=== PATIENT | female | born 1985 | race African-American/Black ===

== ENCOUNTER 2019-03-25 13:23 | Outpatient (CLI) | payer OTHER ==
--- NOTE | 2019-03-29 15:16 | Ultrasound Report ---
Reason: TWIN GESTATION, DICHORIONIC/DIAMNIOTIC Procedure Date: 03/25/2019 Accession Number: [id number] / [id number] Procedure: US - OB F/U or Repeat CPT Code: FULL RESULT: EXAM: FOLLOW-UP OBSTETRICAL ULTRASOUND EXAM DATE: 03/25/2019 02:54 PM. CLINICAL HISTORY: TWIN GESTATION, DICHORIONIC/DIAMNIOTIC. COMPARISON: Report from 01/11/2019. TECHNIQUE: Real-time sonographic evaluation of the fetus performed by the yard attendant. Multiple indirect sales representative static images were saved for review. DATING: Established EGA 29 weeks 5 days with VALERY 06/05/2019 based on source of assigned dating. EGA Twin A: 30 weeks 1 day with VALERY 06/02/2019 based on the current ultrasound. EGA TWin B: 29 weeks 4 days with VALERY 06/06/2019 based on the current ultrasound. GENERAL EVALUATION Twin . Reported dichorionic diamniotic. Twin A: Cardiac activity: 160 bpm. movement: Visualized. Presentation: Cephalic. Placenta: Posterior position. Amniotic fluid: Normal. EDY 13.2 cm. MVP 5.1 cm. BIOMETRY Bi-Parietal Diameter (BPD): 7.2 cm, 29/0 Head Circumference (HC): 27.7 cm, 30/2 Abdominal Circumference (AC): 27.0 cm, 31/1 Femur Length (FL): 5.8 cm, 30/0 Estimated Weight: 1603 g, 69th Percentile for 29 weeks 5 days. Twin B: Cardiac activity: 164 bpm. movement: Visualized. Presentation: Breech Placenta: Posterior position. Amniotic fluid: Normal. EDY 17.4 cm. MVP 6.1 cm. BIOMETRY Bi-Parietal Diameter (BPD): 6.8 cm, 27/3 Head Circumference (HC): 27.5 cm, 30/1 Abdominal Circumference (AC): 27.4 cm, 31/3 Femur Length (FL): 5.6 cm, 29/2 Estimated Weight: 1551 g, 59th Percentile for 29 weeks 5 days. Maternal anatomy: The cervix measures 3.5 cm transabdominally. There appears to be mild finding lean of the internal cervical os. IMPRESSION: 1. Twin living intrauterine with gestational age 29 weeks 5 days based on source of assigned dating. 2. Estimated weight for both twins is within expected limits for assigned dating. 3. The cervix measures 3.5 cm transabdominally. There appears to be mild funneling of the internal cervical os. Transvaginal imaging could further assess the cervix at follow-up. RADIA
== END 2019-03-25 13:24 | disposition home or self-care (01) ==
LOC: DI 13:23
PROVIDERS: ATTEND Obstetrics & Gynecology
DX: O30.043 Twin pregnancy, dichorionic/diamniotic, third trimester (principal); Z3A.29 29 weeks gestation of pregnancy
CPT/HCPCS: 76816

== ENCOUNTER 2019-04-02 14:38 | Outpatient (CLI) | payer OTHER ==
[2019-04-02 17:28] VITALS: BP 108/66
--- NOTE | 2019-04-02 18:48 | Ultrasound Report ---
Reason: decreased movement Procedure Date: 04/02/2019 Accession Number: [id number] / [id number] Procedure: US - OB Biophysical Profile CPT Code: FULL RESULT: EXAM: BIOPHYSICAL PROFILE EXAM DATE: 04/02/2019 05:17 PM. CLINICAL HISTORY: Decreased movement. Dichorionic diamniotic twins. COMPARISON: None. TECHNIQUE: Real-time sonographic evaluation of the fetus performed by the thickener operator. Multiple contact center representative static images were saved for review. DATING: Established EGA 30 weeks 6 days with VALERY 06/05/2019. GENERAL EVALUATION Fetus A: Velasquez . Cardiac activity: 154 bpm. movement: Visualized. Presentation: Maternal right cephalic. Placenta: Posterior position. Amniotic fluid: Normal. EDY 19.3 cm. MVP 7.3 cm. BIOPHYSICAL PROFILE Breathing = 2 Movement = 2 Tone = 2 Amniotic Fluid = 2 Total 8/8, normal. Fetus B: Velasquez . Cardiac activity: 153 bpm. movement: Visualized. Presentation: Maternal left cephalic. Placenta: Posterior position. Amniotic fluid: Normal. EDY 13.4 cm. MVP 4 cm. BIOPHYSICAL PROFILE Breathing = 2 Movement = 2 Tone = 2 Amniotic Fluid = 2 Total 8/8, normal. Cervix appears long and closed, measures 3.6 cm. IMPRESSION: 1. Live twin intrauterine . 2. Biophysical profile score is normal for each twin, 8 of 8. See above. RADIA
--- NOTE | 2019-04-19 20:42 | PROVIDER PROGRESS NOTE ---
- HPI Chief Complaint: Other (Patient is a 34 yo GP1 at 30w6d ega with complicated by di/di twin gestation. Presents with complaint of decreased movement.) Current : Current EDU 06/05/19 Gestation 30 Weeks and 6 Days 2 Para 1 Vital Signs Temperature 98.4 F 04/02/19 15:10 Heart Rate 100 04/02/19 15:10 Respiratory Rate 18 04/02/19 15:10 Blood Pressure 108/66 04/02/19 15:10 O2 Saturation 100 04/02/19 15:10 Temperature 98.4 F 04/02/19 15:10 Heart Rate 100 04/02/19 15:10 Respiratory Rate 18 04/02/19 15:10 Blood Pressure 108/66 04/02/19 15:10 O2 Saturation 100 04/02/19 15:10 - Procedures OB Procedure Performed: Other (BPP 8/8 x2) NST Procedure: NST Procedure Start Date 04/02/19 Start Time 14:50 Stop Time 15:50 Vibroacoustic Stimulation Used No Patient States Movement Yes: decreased since 10am today Service Date of procedure: 04/02/19 Procedure Details: NST showed fragments of reactive tracing with baseline in the 150sx2. However, not able to identify clearly distinct tracing for each infant Formal BPP ordered to confirm viability and appropriate reactivity for gestational age BPP 8/8 for each . See formal DI report. Findings: 34 yo at 30+6 wga with did/di twin gestation and report of decreased movement. NST unreadable due to inability to differentiate between two tracings. BPP ordered and was 8/8 for each fetus. Discharged to home with warning sings reviewed. Proceed with routine OB care, including start of testing at 32 wga DOS: 04/02/19 Decreased movement in di/di twin gestation
== END 2019-04-02 18:55 | disposition home or self-care (01) ==
LOC: WFO 14:38 → FBP 14:45 → WFO 18:55
PROVIDERS: ATTEND Obstetrics & Gynecology
DX: O36.8130 Decreased fetal movements, third trimester, not applicable or unspecified (principal); O30.043 Twin pregnancy, dichorionic/diamniotic, third trimester; Z3A.30 30 weeks gestation of pregnancy
CPT/HCPCS: 59025; 76819

== ENCOUNTER 2019-04-09 09:28 | Outpatient (CLI) | payer OTHER ==
[2019-04-09 09:56] VITALS: BP 108/68
--- NOTE | 2019-04-09 11:30 | PROCEDURE REPORT ---
- HPI Current EDU 06/05/19 Gestation 31 Weeks and 6 Days 2 Para 1 Vital Signs Heart Rate 102 H 04/09/19 09:54 Respiratory Rate 18 04/09/19 09:54 Blood Pressure 108/68 04/09/19 09:54 O2 Saturation 99 04/09/19 09:54 Temperature Heart Rate 102 H 04/09/19 09:54 Respiratory Rate 18 04/09/19 09:54 Blood Pressure 108/68 04/09/19 09:54 O2 Saturation 99 04/09/19 09:54 - NST Procedure NST Procedure Start Date 04/09/19 Start Time 09:40 Stop Time 11:00 Vibroacoustic Stimulation Used No Patient States Movement Yes Base line 150 from both twins acceleration on both infants - Results and Plan Findings/Impression: Twin gestation 31.6 weeks reactive strips
== END 2019-04-09 11:10 | disposition home or self-care (01) ==
LOC: WFO 09:28 → FBP 09:32 → WFO 11:10
PROVIDERS: ATTEND Obstetrics & Gynecology
DX: O30.003 Twin pregnancy, unspecified number of placenta and unspecified number of amniotic sacs, third trimester (principal); Z3A.31 31 weeks gestation of pregnancy
CPT/HCPCS: 59025

== ENCOUNTER 2019-04-16 09:37 | Outpatient (CLI) | payer OTHER ==
[2019-04-16 10:00] VITALS: BP 119/68
--- NOTE | 2019-04-16 12:13 | PROCEDURE REPORT ---
- HPI Diagnosis/Indication for NST: Multiple gestation Current EDU 06/06/19 Gestation 32 Weeks and 5 Days 2 Para 1 Vital Signs Temperature 36.9 C 04/16/19 09:59 Heart Rate 109 H 04/16/19 09:59 Respiratory Rate 18 04/16/19 09:59 Blood Pressure 119/68 04/16/19 09:59 O2 Saturation 98 04/16/19 09:59 Temperature 36.9 C 04/16/19 09:59 Heart Rate 109 H 04/16/19 09:59 Respiratory Rate 18 04/16/19 09:59 Blood Pressure 119/68 04/16/19 09:59 O2 Saturation 98 04/16/19 09:59 - NST Procedure NST Procedure Start Date 04/16/19 Start Time 09:50 Stop Time 10:41 Vibroacoustic Stimulation Used Yes Patient States Movement Yes - Results and Plan Findings/Impression: NST results reveal both twin B and twin A to be reactive today. The test was read on 04/16/2019. Impression: Dichorionic/diamniotic twin gestation at 32 weeks 5 day gestation. Plan: The patient was discharged home. She will return in 1 week for her next nonstress test.
== END 2019-04-16 10:50 | disposition home or self-care (01) ==
LOC: WFO 09:37 → FBP 09:39 → WFO 10:50
PROVIDERS: ATTEND Obstetrics & Gynecology
DX: O30.043 Twin pregnancy, dichorionic/diamniotic, third trimester (principal); Z3A.32 32 weeks gestation of pregnancy
CPT/HCPCS: 59025

== ENCOUNTER 2019-04-23 09:31 | Outpatient (CLI) | payer OTHER ==
[2019-04-23 09:52] VITALS: BP 111/63
--- NOTE | 2019-04-28 11:57 | PROCEDURE REPORT ---
- HPI Current EDU 06/05/19 Gestation 33 Weeks and 6 Days 2 Para 1 Vital Signs Temperature 36.5 C 04/23/19 09:50 Heart Rate 108 H 04/23/19 09:50 Respiratory Rate 18 04/23/19 09:50 Blood Pressure 111/63 04/23/19 09:50 O2 Saturation 99 04/23/19 09:50 Temperature 36.5 C 04/23/19 09:50 Heart Rate 108 H 04/23/19 09:50 Respiratory Rate 18 04/23/19 09:50 Blood Pressure 111/63 04/23/19 09:50 O2 Saturation 99 04/23/19 09:50 - NST Procedure NST Procedure Start Date 04/23/19 Start Time 09:43 Stop Time 10:33 Vibroacoustic Stimulation Used No Patient States Movement Yes - Results and Plan Findings/Impression: base line 145 33.6 weeks good varriability few accelerations. Acceptable for 33.6 weeks Twins Plan: continue antinatal testing.
== END 2019-04-23 10:40 | disposition home or self-care (01) ==
LOC: WFO 09:31 → FBP 09:34 → WFO 10:40
PROVIDERS: ATTEND Obstetrics & Gynecology
DX: O30.003 Twin pregnancy, unspecified number of placenta and unspecified number of amniotic sacs, third trimester (principal); Z3A.33 33 weeks gestation of pregnancy
CPT/HCPCS: 59025

== ENCOUNTER 2019-04-28 09:36 | Outpatient (CLI) | payer OTHER ==
--- NOTE | 2019-04-29 07:34 | Ultrasound Report ---
Reason: DICHORIONIC/DIAMNIOTIC TWINS Procedure Date: 04/28/2019 Accession Number: [id number] / [id number] Procedure: US - OB F/U or Repeat CPT Code: FULL RESULT: EXAM: FOLLOW-UP OBSTETRICAL ULTRASOUND - TWINS EXAM DATE: 04/28/2019 10:56 AM. CLINICAL HISTORY: DICHORIONIC/DIAMNIOTIC TWINS. COMPARISON: OB F/U OR REPEAT 03/25/2019 2:54 PM. TECHNIQUE: Real-time sonographic evaluation of the fetus performed by the curriculum coordinator. Multiple retail customer service representative static images were saved for review. DATING: Established EGA 34 weeks 4 days with VALERY 06/05/2019 based on assigned dating. Twin A EGA 35 weeks with VALERY 06/02/2019 based on current ultrasound. Twin B EGA 33 weeks 3 days with VALERY 06/11/2019 based on current ultrasound GENERAL EVALUATION Dichorionic/diamniotic twin . TWIN A: Cardiac activity: 143 bpm. movement: Visualized. Presentation: Cephalic Placenta: Fundal posterior position. Amniotic fluid: 18.6 MVP 7.7 cm. BIOMETRY Bi-Parietal Diameter (BPD): 8.5 cm, 34 weeks 1 day Head Circumference (HC): 31.5 cm, 35 weeks 3 days Abdominal Circumference (AC): 31.7 cm, 35 weeks 4 days Femur Length (FL): 6.8 cm, 34 weeks 6 days Composite gestational age 35 weeks 0 days with VALERY 06/02/2019. Estimated Weight: 2628 g, 65.4 percentile for 34 weeks 4 days. TWIN B: Cardiac activity: 141 bpm. movement: Visualized. Presentation: Breech Placenta: Fundal posterior position. Amniotic fluid: 14.4 MVP 4.4 cm. BIOMETRY Bi-Parietal Diameter (BPD): 7.6 cm, 30 weeks 4 days Head Circumference (HC): 30.5 cm, 34 weeks 0 days Abdominal Circumference (AC): 31.7 cm, 35 weeks 5 days Femur Length (FL): 6.5 cm, 33 weeks 3 days CI 70.27 (74-83) Composite gestational age 33 weeks 3 days with VALERY 06/13/2019. Estimated Weight: 2413 g, 38.9 percentile for 34 weeks 4 days. IMPRESSION: 1. Dichorionic/diamniotic twin intrauterine with gestational age 34 weeks 4 days based on assigned dating. 2. Twin A: - Estimated weight is within expected limits for assigned dating. - Normal interval growth 3. Twin B: - Estimated weight is within expected limits for assigned dating. - Normal interval growth . Twin B cranial index is 70.27 (range 74-83) RADIA
== END 2019-04-28 09:37 | disposition home or self-care (01) ==
LOC: DI 09:36
PROVIDERS: ATTEND Obstetrics & Gynecology
DX: O30.049 Twin pregnancy, dichorionic/diamniotic, unspecified trimester (principal); Z3A.34 34 weeks gestation of pregnancy
CPT/HCPCS: 76816

== ENCOUNTER 2019-04-30 09:33 | Outpatient (CLI) | payer OTHER ==
[2019-04-30 10:26] VITALS: BP 113/78
--- NOTE | 2019-05-03 03:55 | Ultrasound Report ---
Reason: assessment of status Procedure Date: 04/30/2019 Accession Number: [id number] / [id number] Procedure: US - OB Biophysical Profile CPT Code: Final Report FULL RESULT: EXAM: BIOPHYSICAL PROFILE TWIN GESTATION EXAM DATE: 04/30/2019 12:42 PM. CLINICAL HISTORY: Nonreactive nonstress test. COMPARISON: OB BIOPHYSICAL PROFILE 04/02/2019 4:35 PM OB F/U OR REPEAT 04/28/2019 9:39 AM. TECHNIQUE: Real-time sonographic evaluation of the fetus performed by the shirring machine operator automatic. Multiple escrow representative static images were saved for review. DATING: Established EGA 34 weeks 6 days with VALERY 06/05/2019. GENERAL EVALUATION Diamnionic dichorionic twin gestation. Twin A: Cardiac activity: 155 bpm. movement: Visualized. Presentation: Cephalic, maternal right. Placenta: Right position. No evidence for previa or abruption. Amniotic fluid: Normal. EDY 15.3 cm. MVP 7.1 cm. Twin B: Cardiac activity: 139 bpm. movement: Visualized. Presentation: Breech, maternal left. Placenta: Left position. No evidence for previa or abruption. Amniotic fluid: Normal. EDY 12.6 cm. MVP 4.9 cm. BIOPHYSICAL PROFILE Twin A: Breathing = 2 Movement = 2 Tone = 2 Amniotic Fluid = 2 Total 8/8 Twin B: Breathing = 2 Movement = 2 Tone = 2 Amniotic Fluid = 2 Total 8/8 IMPRESSION: 1. Twin live intrauterine with gestational age 34 weeks 6 days based on established VALERY. 2. Biophysical profile score 8 of 8 for both fetuses. RADIA
--- NOTE | 2019-05-03 14:17 | PROCEDURE REPORT ---
- HPI Diagnosis/Indication for NST: Multiple gestation Current EDU 06/05/19 Gestation 34 Weeks and 6 Days 2 Para 1 Vital Signs Temperature 97.9 F 04/30/19 10:00 Heart Rate 108 H 04/30/19 10:00 Respiratory Rate 17 04/30/19 10:00 Blood Pressure 113/78 04/30/19 10:00 O2 Saturation 99 04/30/19 10:00 Temperature 97.9 F 04/30/19 10:00 Heart Rate 108 H 04/30/19 10:00 Respiratory Rate 17 04/30/19 10:00 Blood Pressure 113/78 04/30/19 10:00 O2 Saturation 99 04/30/19 10:00 - NST Procedure NST Procedure Start Date 04/30/19 Start Time 09:45 Stop Time 11:08 Vibroacoustic Stimulation Used No Patient States Movement Yes Twin A: EFM 145 mod patsy 15x15 accels x2 on extended monitoring no decels Twin B: EFM 145 mod patsy 1 accel on extended monitoring Non-reactive NST with difficulty monitoring due to twin gestation Sent for BPP. BPP 8/8 for both twins - Results and Plan Findings/Impression: 34 yo at 34w6d ega with di/di twin gestation Non-reactive NST vs difficult to interpret NST given multifetal gestation BPP 8/8 x2 Cont with twice weekly NST and weekly EDY with Q4 week growth us Delivery at 38 wga (vertex/breech presentation) Consider weekly BPP given difficulty monitoring twins Plan: DOS: 04/30/19 DX: Multifetal gestation
== END 2019-04-30 14:00 | disposition home or self-care (01) ==
LOC: WFO 09:33 → FBP 09:36 → WFO 14:00
PROVIDERS: ATTEND Obstetrics & Gynecology
DX: O30.043 Twin pregnancy, dichorionic/diamniotic, third trimester (principal); O32.1XX2 Maternal care for breech presentation, fetus 2; Z3A.34 34 weeks gestation of pregnancy
CPT/HCPCS: 59025; 76819

== ENCOUNTER 2019-05-06 09:00 | Outpatient (CLI) | payer OTHER ==
[2019-05-07 20:51] LABS: TRICHOMONAS VAGINALIS DNA NEGATIVE (NEGATIVE)
== END 2019-05-06 23:59 | disposition home or self-care (01) ==
LOC: LAB.R 09:00
PROVIDERS: ATTEND Obstetrics & Gynecology
DX: O30.049 Twin pregnancy, dichorionic/diamniotic, unspecified trimester (principal); Z3A.00 Weeks of gestation of pregnancy not specified
CPT/HCPCS: 87491; 87591; 87661; 87797

== ENCOUNTER 2019-05-07 09:28 | Outpatient (CLI) | payer OTHER ==
[2019-05-07 09:45] VITALS: BP 116/64
--- NOTE | 2019-05-07 12:26 | Ultrasound Report ---
Reason: HX of nonreactive NST Procedure Date: 05/07/2019 Accession Number: [id number] / [id number] Procedure: US - OB Biophysical Profile CPT Code: Final Report FULL RESULT: EXAM: OBSTETRICAL ULTRASOUND - TWINS BIOPHYSICAL PROFILE EXAM DATE: 05/07/2019 11:04 AM. CLINICAL HISTORY: HX of nonreactive NST. COMPARISON: OB BIOPHYSICAL PROFILE 04/30/2019 12:42 PM. TECHNIQUE: Real-time sonographic evaluation of the fetus performed by the layup worker. Multiple career services representative static images were saved for review. DATING: Established EGA 35 weeks 6 days with VALERY 06/05/2019 based on assigned dating. GENERAL EVALUATION Dichorionic/diamniotic twin . TWIN A: Position: Maternal right Cardiac activity: 151 bpm. movement: Visualized. Presentation: Cephalic. Placenta: Anterior right position. Amniotic fluid: 13.8 MVP 5.4 cm. BIOPHYSICAL PROFILE Breathing = 2 Movement = 2 Tone = 2 Amniotic Fluid = 2 Total 02/04 TWIN B: Position: Maternal left. Cardiac activity: 154 bpm. movement: Visualized. Presentation: Breech Placenta: Anterior left position. Amniotic fluid: 12.9 MVP 4.3 cm. BIOPHYSICAL PROFILE Breathing = 2 Movement = 2 Tone = 2 Amniotic Fluid = 2 Total 02/04 IMPRESSION: 1. Dichorionic/diamniotic twin intrauterine with gestational age 35 weeks 6 days based on assigned dating EDC 06/05/2019. 2. Twin A: Biophysical profile 8 out of 8 3. Twin B: Biophysical profile 8 out of 8 RADIA
--- NOTE | 2019-05-07 15:09 | PROCEDURE REPORT ---
- HPI Diagnosis/Indication for NST: Multiple gestation Current EDU 06/05/19 Gestation 35 Weeks and 6 Days 2 Para 1 Vital Signs Heart Rate 100 05/07/19 09:44 Respiratory Rate 18 05/07/19 09:44 Blood Pressure 116/64 05/07/19 09:44 O2 Saturation 100 05/07/19 09:44 Temperature Heart Rate 100 05/07/19 09:44 Respiratory Rate 18 05/07/19 09:44 Blood Pressure 116/64 05/07/19 09:44 O2 Saturation 100 05/07/19 09:44 - NST Procedure NST Procedure Start Date 05/07/19 Start Time 11:08 Stop Time 12:36 Vibroacoustic Stimulation Used Yes Patient States Movement Yes - Results and Plan Findings/Impression: both twins reactive. BPP 02/04 twin A 02/04 twin B Plan: continue with antinatal NST.
== END 2019-05-07 12:45 | disposition home or self-care (01) ==
LOC: WFO 09:28 → FBP 09:33 → WFO 12:45
PROVIDERS: ATTEND Obstetrics & Gynecology
DX: O30.043 Twin pregnancy, dichorionic/diamniotic, third trimester (principal); Z3A.35 35 weeks gestation of pregnancy
CPT/HCPCS: 59025; 76819

== ENCOUNTER 2019-05-14 09:25 | Outpatient (CLI) | payer OTHER ==
[2019-05-14 10:07] VITALS: BP 122/72
--- NOTE | 2019-05-14 11:25 | PROCEDURE REPORT ---
- HPI Diagnosis/Indication for NST: Multiple gestation Current EDU 06/05/19 Gestation 36 Weeks and 6 Days 2 Para 1 Vital Signs Temperature 36.9 C 05/14/19 10:06 Heart Rate 102 H 05/14/19 10:06 Respiratory Rate 18 05/14/19 10:06 Blood Pressure 122/72 05/14/19 10:06 O2 Saturation 100 05/14/19 10:06 Temperature 36.9 C 05/14/19 10:06 Heart Rate 102 H 05/14/19 10:06 Respiratory Rate 18 05/14/19 10:06 Blood Pressure 122/72 05/14/19 10:06 O2 Saturation 100 05/14/19 10:06 - NST Procedure NST Procedure Start Date 05/14/19 Start Time 09:50 Stop Time 10:43 Vibroacoustic Stimulation Used No Patient States Movement Yes - Results and Plan Findings/Impression: There was a reactive strip with respect to both twin A and twin B. This strip was read on 05/14/2019 Plan: The patient will be discharged home.She knows to come in if she has any signs of labor. As long she does well she will continue with her serial testing. Her Repeat has been tentatively scheduled for 05/24/2019.
== END 2019-05-14 10:50 | disposition home or self-care (01) ==
LOC: WFO 09:25 → FBP 09:29 → WFO 10:50
PROVIDERS: ATTEND Obstetrics & Gynecology
DX: O30.003 Twin pregnancy, unspecified number of placenta and unspecified number of amniotic sacs, third trimester (principal); O34.219 Maternal care for unspecified type scar from previous cesarean delivery; Z3A.36 36 weeks gestation of pregnancy
CPT/HCPCS: 59025

== ENCOUNTER 2019-05-21 10:20 | Outpatient (CLI) | payer OTHER ==
[2019-05-21 10:45] VITALS: BP 112/59
--- NOTE | 2019-05-21 11:58 | PROCEDURE REPORT ---
- HPI Diagnosis/Indication for NST: Multiple gestation Current EDU 06/05/19 Gestation 37 Weeks and 6 Days 2 Para 1 Vital Signs Temperature 36.9 C 05/21/19 10:44 Heart Rate 102 H 05/21/19 10:44 Respiratory Rate 18 05/21/19 10:44 Blood Pressure 112/59 L 05/21/19 10:44 Temperature 36.9 C 05/21/19 10:44 Heart Rate 102 H 05/21/19 10:44 Respiratory Rate 18 05/21/19 10:44 Blood Pressure 112/59 L 05/21/19 10:44 O2 Saturation - NST Procedure NST Procedure Start Date 05/21/19 Start Time 10:45 Stop Time 11:16 Vibroacoustic Stimulation Used Yes Patient States Movement Yes - Results and Plan Findings/Impression: Reactive NST. Read on 05/21/2019 Plan: The pt is scheduled for her repeat with kevin salpingectomy on 05/24/2019. She will come in sooner if signs of labor ensue.
== END 2019-05-21 11:20 | disposition home or self-care (01) ==
LOC: WFO 10:20
PROVIDERS: ATTEND Obstetrics & Gynecology
DX: O30.003 Twin pregnancy, unspecified number of placenta and unspecified number of amniotic sacs, third trimester (principal); O34.219 Maternal care for unspecified type scar from previous cesarean delivery; Z3A.37 37 weeks gestation of pregnancy
CPT/HCPCS: 59025

== ENCOUNTER 2019-05-24 04:33 | Inpatient (IN) | payer OTHER ==
[~2019-05-24 04:33] MED LIST: LACTATED RINGERS 1,000 ML IV ONE; SODIUM CHLORIDE FLUSH 0.9% 10 ML SYRINGE ONE
[2019-05-24] MEDS: SODIUM CHLORIDE FLUSH 0.9% 10 ML SYRINGE IVP PRN ×2 (05:05→17:01)
[2019-05-24] MEDS: LACTATED RINGERS 1,000 ML IV SCH ×2 (05:05→11:00)
[2019-05-24 05:37] LABS: BASOPHILS # (AUTO) 0.1 10^3/uL (0.0-0.1); BASOPHILS % (AUTO) 0.5 %; EOSINOPHILS # (AUTO) 0.1 10^3/uL (0.0-0.7); EOSINOPHILS % (AUTO) 1.2 %; HGB - HEMOGLOBIN 10.7 g/dL (12.0-16.0); LYMPHOCYTES # (AUTO) 1.8 10^3/uL (1.5-3.5); MEAN CORPUSCULAR HGB CONC 32.6 g/dL (32.0-36.0); MEAN CORPUSCULAR VOLUME 85.9 fL (81.0-99.0); MEAN PLATELET VOLUME 11.9 fL (7.9-10.8); MONOCYTES # (AUTO) 1.3 10^3/uL (0.0-1.0); NEUTROPHILS # (AUTO) 6.5 10^3/uL (1.5-6.6); NEUTROPHILS % (AUTO) 65.3 %; PLT - PLATELET COUNT 186 10^3/uL (130-450); RED BLOOD COUNT 3.82 10^6/uL (4.20-5.40); RED CELL DISTRIBUTION WIDTH 15.4 % (12.0-15.0)
[2019-05-24 06:02] LABS: BILIRUBIN,URINE NEGATIVE (NEGATIVE); GLUCOSE, URINE (UA) NEGATIVE (NEGATIVE); KETONES,URINE (UA) NEGATIVE (NEGATIVE); LEUKOCYTE ESTERASE, URINE NEGATIVE (NEGATIVE); NITRITE,URINE NEGATIVE (NEGATIVE); OCCULT BLOOD,URINE NEGATIVE (NEGATIVE); PH,URINE 7.5 PH (5.0-7.5); PROTEIN,URINE NEGATIVE (NEGATIVE); UROBILINOGEN,URINE 0.2 (NORMAL) E.U./dL (NORMAL)
[2019-05-24 06:03] LABS: CLARITY,URINE CLEAR (CLEAR)
[2019-05-24 06:08] LABS: BACTERIA,URINE None Seen /HPF (None Seen); RBC,URINE None Seen /HPF (0-5); SQUAMOUS EPITHELIAL CELL,UR MANY Squamous (<= Few)
[2019-05-24] MEDS ORDERED: CITRIC ACID/SODIUM CITRATE 15 ML UDC PO ONE (06:48)
[2019-05-24] MEDS ORDERED: ROPIVACAINE 0.5% PF 20 ML AMPULE ONE (07:05)
[2019-05-24] MEDS ORDERED: CARBOPROST TROMETHAMINE 250 MCG/ML AMP IM ONE ×3 (07:06→14:26)
--- NOTE | 2019-05-24 07:22 | ANESTHESIA ---
Pre-Anesthesia VS, & Labs - Diagnosis Gestational twins, desires sterility - Procedure Repeat C section, bilateral tubal ligation Vital Signs: Temp Pulse Resp BP Pulse Ox 36.6 C 96 18 98/58 L 99 05/24/19 05:51 05/24/19 05:51 05/24/19 05:51 05/24/19 05:51 05/24/19 05:51 Height 5 ft 4 in Weight (kg) 98.43 kg - NPO >8 hours - Is Patient ?: Yes - Lab Results Current Lab Results: Laboratory Tests 05/24/19 05:00: Blood Type A POSITIVE, Antibody Screen NEGATIVE 05/24/19 05:00: WBC 10.0, RBC 3.82 L, Hgb 10.7 L, Hct 32.8 L, MCV 85.9, MCH 28.0, MCHC 32.6, RDW 15.4 H, Plt Count 186, MPV 11.9 H, Neut # (Auto) 6.5, Lymph # (Auto) 1.8, Howell # (Auto) 1.3 H, Eos # (Auto) 0.1, Baso # (Auto) 0.1, Absolute Nucleated RBC 0.00, Nucleated RBC % 0.0 Fish Bones: 05/24/19 05:00 Home Medications and Allergies Active Medications Cefazolin Sodium 2 gm/ Sodium (Chloride) 100 mls @ 200 mls/hr IV ONCE HONEY Stop: 05/24/19 07:31 Lactated Ringer's (Lr) 1,000 mls @ 125 mls/hr IV .Q8H HONEY Last Admin: 05/24/19 05:05 Dose: 125 mls/hr Sodium Chloride (Normal Saline Flush 0.9%) 10 ml IVP PRN PRN PRN Reason: NEEDED PER PROVIDER ORDERS Last Admin: 05/24/19 05:05 Dose: 10 ml Allergies/Adverse Reactions: Allergies Allergy/AdvReac Type Severity Reaction Status Date / Time kiwi Allergy Severe Unknown Verified 05/24/19 02:11 latex Allergy Severe Unknown Verified 05/24/19 02:10 Anes History & Medical History - Anesthetic History Anesthesia Complications: reports: No previous complications Family history of Anesthesia Complications: Denies Family history of Malignant Hyperthermia: Denies - Medical History Cardiovascular: reports: None Pulmonary: reports: None Gastrointestinal: reports: None Urinary: reports: None Neuro: reports: None Musculoskeletal: reports: None Endocrine/Autoimmune: reports: None Blood Disorders: reports: None Skin: reports: None Smoking Status: Never smoker Psychosocial: reports: No issues indicated - Surgical History Gynecologic: Other (C section) Exam General: Alert, Oriented x3 Dental: WNL Mouth Opening: Greater than 4 Fingerbreadths Neck Mobility: Normal Mallampati classification: II Mental/Cognitive Status: Alert/Oriented X3, Normal for patient Cognitive Status: Within normal limits Plan Anesthesia Type: Spinal Consent for Procedure(s) Verified and Reviewed: Yes Code Status: Attempt Resuscitation ASA classification: 2-Mild systemic disease Is this case an emergency?: No
[2019-05-24] MEDS ORDERED: CITRIC ACID/SODIUM CITRATE 15 ML UDC PO SCH (07:26)
[2019-05-24] MEDS ORDERED: ceFAZolin 2 GM in SODIUM CHLORIDE 0.9% 100ML 100 ML IV SCH (07:30)
[2019-05-24] MEDS ORDERED: LACTATED RINGERS 1,000 ML IV ONE ×2 (08:00→10:16)
[2019-05-24] MEDS ORDERED: ONDANSETRON 4 MG/2 ML VIAL IVP PRN (09:42)
[2019-05-24] MEDS ORDERED: SODIUM CHLORIDE FLUSH 0.9% 10 ML SYRINGE IVP PRN (09:42)
[2019-05-24] MEDS ORDERED: POLYETHYLENE GLYCOL 3350 17 GM PACKET PO PRN (09:50)
[2019-05-24] MEDS ORDERED: HYDROmorphone 0.5 MG/0.5 ML SYRINGE IVP PRN (09:51)
[2019-05-24] MEDS ORDERED: OXYTOCIN/DEXTROSE 5 % 30 UNIT/500 ML BAG IV ONE (10:15)
[2019-05-24] MEDS ORDERED: LACTATED RINGERS 500 ML IV ONE ×2 (10:20→12:01)
[2019-05-24] MEDS ORDERED: METHYLERGONOVINE 0.2 MG/ML AMP ONE (10:35)
[2019-05-24] MEDS ORDERED: METHYLERGONOVINE 0.2 MG/ML AMP IM ONE (10:47)
[2019-05-24] MEDS ORDERED: METHYLERGONOVINE 0.2 MG/ML AMP PO ONE (10:48)
[2019-05-24] MEDS ORDERED: CHERRY SYRUP 10 ML UDC PO ONE (10:48)
[2019-05-24] MEDS: ACETAMINOPHEN 500 MG TABLET PO SCH ×2 (10:50→18:48)
[2019-05-24] MEDS: IBUPROFEN 600 MG TABLET PO SCH ×2 (10:51→16:58)
--- NOTE | 2019-05-24 11:57 | PROVIDER PROGRESS NOTE ---
Subjective - General Admit Date: 05/24/19 Procedure Date: 05/24/19 Post Op Days: 0 - Other Other Information/Narrative: We are called per nursing due to patient having large gushes of bleeding. She will firm up with her day. She was given 0.2 mg of Methergine IM. This helped for a while but then she had yet another gush of fluid. Her uterus now is firm. She is breast-feeding now and that is when actually the end up. She is not having any untoward bleeding now.Her Pitocin was only at 50 mL's per minute. This was then opened up to assure adequate amounts for uterine tone. Objective - Patient Data Vital Signs: Vital Signs x48h Temp Pulse Pulse Resp BP BP Pulse Ox 05/24/19 11:45 104 H 106/59 L 99 05/24/19 11:30 101 H 83/43 L 100 05/24/19 11:15 106 H 16 103/58 L 100 05/24/19 10:57 103 H 100/57 L 100 05/24/19 10:45 36.4 C L 105 H 20 99/75 99 05/24/19 10:25 36.7 C 104 H 16 99/67 100 05/24/19 10:20 36 C L 107 H 18 107/56 L 100 05/24/19 10:15 36.7 C 116 H 16 107/56 L 100 05/24/19 10:10 36.7 C 112 H 16 99/74 100 05/24/19 10:05 36.7 C 110 H 14 106/68 100 05/24/19 10:01 36.5 C 106 H 18 104/63 99 05/24/19 05:51 36.6 C 96 18 98/58 L 99 Weight: Weight 05/22/19 05/23/19 05/24/19 23:59 23:59 23:59 Weight (kg) 98.43 kg Intake & Output: Intake and Output Totals x24h 05/22/19 05/23/19 05/24/19 23:59 23:59 23:59 Intake Total 1939.583 Output Total 1560 Balance 379.583 - Lab Results Lab Results: 05/24/19 05:00 Other Lab Results: Lab Results x24hrs 05/24/19 05/24/19 05/24/19 Range/Units 07:00 05:55 05:00 WBC (4.8-10.8) x10^3/uL RBC (4.20-5.40) 10^6/uL Hgb (12.0-16.0) g/dL Hct (37.0-47.0) % MCV (81.0-99.0) fL MCH (27.0-31.0) pg MCHC (32.0-36.0) g/dL RDW (12.0-15.0) % Plt Count (130-450) 10^3/uL MPV (7.9-10.8) fL Neut # (Auto) (1.5-6.6) 10^3/uL Lymph # (Auto) (1.5-3.5) 10^3/uL Cobb # (Auto) (0.0-1.0) 10^3/uL Eos # (Auto) (0.0-0.7) 10^3/uL Baso # (Auto) (0.0-0.1) 10^3/uL Absolute Nucleated RBC x10^3/uL Nucleated RBC % /100WBC Urine Color YELLOW Urine Clarity CLEAR (CLEAR) Urine pH 7.5 (5.0-7.5) PH Ur Specific [place] <=1.005 (1.002-1.030) Urine Protein NEGATIVE (NEGATIVE) mg/dL Urine Glucose (UA) NEGATIVE (NEGATIVE) mg/dL Urine Ketones NEGATIVE (NEGATIVE) mg/dL Urine Occult Blood NEGATIVE (NEGATIVE) Urine Nitrite NEGATIVE (NEGATIVE) Urine Bilirubin NEGATIVE (NEGATIVE) Urine Urobilinogen 0.2 (NORMAL) (NORMAL) E.U./dL Ur Leukocyte Esterase NEGATIVE (NEGATIVE) Urine RBC None Seen (0-5) /HPF Urine WBC 0-3 (0-5) /HPF Ur Squamous Epith Cells MANY Squamous H (<= Few) Urine Bacteria None Seen (None Seen) /HPF Urine Culture Comments NOT INDICATED Blood Type A POSITIVE Blood Type Recheck A POSITIVE Antibody Screen NEGATIVE 05/24/19 Range/Units 05:00 WBC 10.0 (4.8-10.8) x10^3/uL RBC 3.82 L (4.20-5.40) 10^6/uL Hgb 10.7 L (12.0-16.0) g/dL Hct 32.8 L (37.0-47.0) % MCV 85.9 (81.0-99.0) fL MCH 28.0 (27.0-31.0) pg MCHC 32.6 (32.0-36.0) g/dL RDW 15.4 H (12.0-15.0) % Plt Count 186 (130-450) 10^3/uL MPV 11.9 H (7.9-10.8) fL Neut # (Auto) 6.5 (1.5-6.6) 10^3/uL Lymph # (Auto) 1.8 (1.5-3.5) 10^3/uL Cobb # (Auto) 1.3 H (0.0-1.0) 10^3/uL Eos # (Auto) 0.1 (0.0-0.7) 10^3/uL Baso # (Auto) 0.1 (0.0-0.1) 10^3/uL Absolute Nucleated RBC 0.00 x10^3/uL Nucleated RBC % 0.0 /100WBC Urine Color Urine Clarity (CLEAR) Urine pH (5.0-7.5) PH Ur Specific [place] (1.002-1.030) Urine Protein (NEGATIVE) mg/dL Urine Glucose (UA) (NEGATIVE) mg/dL Urine Ketones (NEGATIVE) mg/dL Urine Occult Blood (NEGATIVE) Urine Nitrite (NEGATIVE) Urine Bilirubin (NEGATIVE) Urine Urobilinogen (NORMAL) E.U./dL Ur Leukocyte Esterase (NEGATIVE) Urine RBC (0-5) /HPF Urine WBC (0-5) /HPF Ur Squamous Epith Cells (<= Few) Urine Bacteria (None Seen) /HPF Urine Culture Comments Blood Type Blood Type Recheck Antibody Screen - Current Medications Current Medications: Current Medications Generic Name Dose Route Start Last Admin Trade Name Freq PRN Reason Stop Dose Admin Acetaminophen 1,000 mg 05/24/19 10:00 05/24/19 10:50 Tylenol PO 1,000 mg Q8H HONEY Administration Lactated Ringer's 1,000 mls @ 125 mls/hr 05/24/19 05:00 05/24/19 11:00 Lr IV 125 mls/hr .Q8H HONEY Administration Ibuprofen 600 mg 05/24/19 10:00 05/24/19 10:51 Motrin PO 11/26/19 09:59 600 mg Q6H HONEY Administration Sodium Chloride 10 ml 05/24/19 05:00 05/24/19 05:05 Normal Saline Flush 0.9% IVP 10 ml PRN PRN Administration NEEDED PER PROVIDER ORDERS - Physical Exam Comments/Other: Abdomen: The abdomen is soft, pliable and nontender. Uterus is firm and tender approximately 3 fingerbreadths above the umbilicus.Lochia is scant at the moment. Impression/Plan - Problem List Problem List: Post op day/ day #0 Uterine atony Previous section Dichorionic diamniotic twin delivery Request for sterilization Plan:Going to get a stat CBC. If her bleeding continues we may try a Bakri balloon. We will however observe her at this time.
[2019-05-24] MEDS: OXYTOCIN/DEXTROSE 5 % 30 UNIT/500 ML BAG IV PRN ×2 (12:04→12:34)
[2019-05-24 12:11] LABS: BASOPHILS # (AUTO) 0.1 10^3/uL (0.0-0.1); BASOPHILS % (AUTO) 0.4 %; EOSINOPHILS % (AUTO) 0.2 %; HGB - HEMOGLOBIN 8.6 g/dL (12.0-16.0); LYMPHOCYTES # (AUTO) 0.9 10^3/uL (1.5-3.5); LYMPHOCYTES % (AUTO) 5.7 %; MEAN CORPUSCULAR HEMOGLOBIN 27.1 pg (27.0-31.0); MEAN CORPUSCULAR HGB CONC 31.2 g/dL (32.0-36.0); MEAN CORPUSCULAR VOLUME 87.1 fL (81.0-99.0); MONOCYTES # (AUTO) 1.2 10^3/uL (0.0-1.0); MONOCYTES % (AUTO) 7.6 %; NEUTROPHILS # (AUTO) 13.8 10^3/uL (1.5-6.6); PLT - PLATELET COUNT 162 10^3/uL (130-450); RED BLOOD COUNT 3.17 10^6/uL (4.20-5.40); RED CELL DISTRIBUTION WIDTH 15.7 % (12.0-15.0); WHITE BLOOD COUNT 16.2 x10^3/uL (4.8-10.8)
[2019-05-24] MEDS ORDERED: SODIUM CHLORIDE 0.9% MINIBAG 100 ML IV ONE (12:13)
[2019-05-24] MEDS ORDERED: TRANEXAMIC ACID 1,000 MG in SODIUM CHLORIDE 0.9% 100ML 100 ML IV STA ×2 (12:18→16:32)
[2019-05-24] MEDS ORDERED: MEASLES,MUMPS & RUBELLA VACC 0.5 ML VIAL SUBQ ONE (12:22)
--- NOTE | 2019-05-24 12:47 | OPERATIVE REPORT ---
DATE OF SERVICE: 05/24/2019 Physician: Giovanni Alford DO PREOPERATIVE DIAGNOSES 1. Diamniotic/dichorionic twin gestation at 38 weeks 3 days' gestation. 2. Previous section. 3. Voluntary request for sterilization. POSTOPERATIVE DIAGNOSES 1. Delivery of diamniotic/dichorionic twins at 38 weeks 3 days' gestation. 2. Previous section. 3. Request for sterilization. 4. Pelvic adhesions. PROCEDURE PERFORMED: Repeat section with low transverse incision, lysis of adhesions, and bilateral salpingectomy. SURGICAL FINDINGS: There were some very dense adhesions in the left adnexa, low to the uterus on the left side. The omentum was also adhered to the anterior fundus of the uterus. Bilateral fallopian tubes and ovaries were unremarkable. The uterine vessels were markedly engorged. Both fetuses were found to be cephalic. ESTIMATED BLOOD LOSS: 800 mL. WOUND CLASSIFICATION: II. COUNTS: Sponge count and needle count were correct. SURGEON: Giovanni Alford DO CARVER HAND: Dr. Chandra, who assisted with draping and retraction. ANESTHESIA: Spinal anesthetic. ESTIMATED BLOOD LOSS: 800 mL. REASON FOR PROCEDURE: For the clinical history, please see H and P. PROCEDURE IN DETAIL: The patient was taken to the operative suite, placed on the surgical table. Under spinal anesthesia, she was placed in the supine position and a rolled blanket placed under the right hip. A timeout then took place. After the timeout was completed, the patient was then prepped and draped in the usual fashion. A Pfannenstiel incision was then made with sharp dissection through the skin, through the previous incision. Both sharp dissection and electrocautery were then used to the level of the fascia. The fascia was then incised in a curvilinear fashion laterally. The rectus musculature was then dissected free from the overlying rectus fascia using sharp dissection. This was quite densely adhered on the patient's cephalad portion of the incision. Once this was developed, a central muscle split was then performed. The peritoneal cavity was entered using a double-hemostat technique. The bladder blade was then placed in the lower pole of the incision and lower uterine segment visualized. The serosa overlying the lower uterine segment was then incised in a curvilinear fashion laterally. The bladder was somewhat densely adhesed, and so just a very small bladder flap was made. The myometrium was then scored with a scalpel blade. However, the amniotic cavity could not be reached and, therefore, deeper tissues were grasped with two Allis clamps and the tissue divided between them. Once that happened, the membranes were now bulging through the incision. The Allis clamps were removed, and the surgeon's finger was placed in the wound, and bandage scissors were then used to incise the lower uterine segment in a transverse fashion. This was under the guidance of the surgeon's fingers. Twin A's membranes were now bulging through the incision. These were ruptured with clear fluid. The bladder blade was now removed and twin A's head was brought through the incision, and then with gentle traction and gentle fundal pressure, the rest of the twin A was delivered without problems. The cord was then doubly clamped with umbilical clamps to cristobal this. The cord was then divided and twin A was crying at that time, was passed off to waiting nursing personnel and leather lacer in attendance. A sample of the cord blood was then obtained and sent for evaluation. A second clamp was then placed onto this. Twin B was now found also to be cephalic. The membranes were ruptured, and twin B's head was easily delivered through the incision. The rest of twin B was then delivered with gentle traction and gentle fundal pressure. A circum nuchal cord, however, x1 was noted and reduced prior to delivery. Once the was delivered, the cord was then doubly clamped and cut and the passed off to waiting nursing personnel and leather lacer in attendance. Twin A had Apgars of 8 and 9 at one and five minutes, respectively, and weighed 7 pounds 6.5 ounces and was a viable female. Twin B is also a viable female with Apgars of 9 and 9 at one and five minutes, respectively. She weighed 7 pounds 6.7 ounces. Once a sample of cord blood was obtained from twin B's cord, the placenta was then delivered spontaneously. The uterus was then extraperitonealized and the uterine cavity explored for any retained products of conception, and none were noted. The placenta was, however, noted to be quite large. The myometrium was now reapproximated using 0 chromic suture in running interlocking fashion. A second layer of 0 chromic suture was used in a running simple fashion to imbricate the first layer and hemostasis followed. At this point in time, the omentum was then lysed from the fundal area of the uterus using electrocautery. Hemostasis followed. Attention was now placed to the right fallopian tube. The right fallopian tube was grasped with a Samantha clamp. It was completely excised from the mesosalpinx using the LigaSure handheld device. The left tube was now grasped with a Presho clamp and completely excised from the mesosalpinx, again using the LigaSure device. Both tubes were sent separately to pathology for evaluation, as was the placenta sent separately. The uterus was now being allowed to return to its anatomic position within the abdominal cavity. There was a question, however, whether there was a rupture of the uterine vessels on the left. The uterus was now once again removed from the abdomen, and the vessels were found to be intact. There was a small tear in the serosa overlying the vessels. The paracolic gutters were then cleared of all blood clots and debris. No bleeding was noted. Hemostasis followed. The myometrial incision was now viewed for any signs of bleeding, none was noted. Hemostasis followed. The rectus musculature was then brought to the midline with interrupted sutures of 0 chromic suture and hemostasis followed. The fascia was then reapproximated using 0 Vicryl suture in a running simple fashion and hemostasis followed. The skin was closed in a running subcuticular fashion using 4-0 Monocryl suture and hemostasis followed. Steri-Strips were placed and sterile dressing was placed. The uterus was palpated to be approximately 2-3 fingerbreadths below the umbilicus and was quite firm. Attempt was made to Crede any clots. None were noted. The patient was now taken to recovery room in stable condition. TD: 05/24/2019 10:09 [place]
--- NOTE | 2019-05-24 14:54 | PROVIDER PROGRESS NOTE ---
Subjective - General Admit Date: 05/24/19 Procedure Date: 05/24/19 Post Op Days: 0 - Other Other Information/Narrative: The patient has now had 2 more episodes of bleeding. 1 with an estimated 120 mL's and another with about 50 mL's. She has had 1 g of tranxamic acid. She has had 0.25 of Hemabate and 0.2 of Methergine. I did talk to her about placing a Bakri balloon. She at this point time does not wish to do this. She is not bleeding at the present time. I told her that we could await to see what her CBC shows. One has been ordered stat. If however this shows that she has precipitously dropped her hemoglobin I do think that her back re-balloon would help to tamponade off the bleeding.She is feeling fairly well at this point otherwise.She is asymptomatic.She is moving well in bed. Objective - Patient Data Vital Signs: Vital Signs x48h Temp Pulse Pulse Resp BP BP Pulse Ox 05/24/19 14:41 101/68 05/24/19 14:33 36.5 C 90 20 84/62 L 99 05/24/19 14:04 98 97/63 100 05/24/19 13:30 104 H 115/62 05/24/19 13:20 108 H 114/71 05/24/19 13:01 93 18 97/79 05/24/19 12:45 100 18 106/48 L 05/24/19 12:30 88 102/59 L 100 05/24/19 12:15 99 98/68 100 05/24/19 12:08 98 103/54 L 100 05/24/19 11:45 104 H 106/59 L 99 05/24/19 11:30 101 H 83/43 L 100 05/24/19 11:15 106 H 16 103/58 L 100 05/24/19 10:57 103 H 100/57 L 100 05/24/19 10:45 36.4 C L 105 H 20 99/75 99 05/24/19 10:25 36.7 C 104 H 16 99/67 100 05/24/19 10:20 36 C L 107 H 18 107/56 L 100 05/24/19 10:15 36.7 C 116 H 16 107/56 L 100 05/24/19 10:10 36.7 C 112 H 16 99/74 100 05/24/19 10:05 36.7 C 110 H 14 106/68 100 05/24/19 10:01 36.5 C 106 H 18 104/63 99 Weight: Weight 05/22/19 05/23/19 05/24/19 23:59 23:59 23:59 Weight (kg) 98.43 kg Intake & Output: Intake and Output Totals x24h 05/22/19 05/23/19 05/24/19 23:59 23:59 23:59 Intake Total 3299.083 Output Total 2267 Balance 1032.083 - Lab Results Lab Results: 05/24/19 12:02 Other Lab Results: Lab Results x24hrs 05/24/19 05/24/19 05/24/19 Range/Units 12:02 07:00 05:55 WBC 16.2 H (4.8-10.8) x10^3/uL RBC 3.17 L (4.20-5.40) 10^6/uL Hgb 8.6 L (12.0-16.0) g/dL Hct 27.6 L (37.0-47.0) % MCV 87.1 (81.0-99.0) fL MCH 27.1 (27.0-31.0) pg MCHC 31.2 L (32.0-36.0) g/dL RDW 15.7 H (12.0-15.0) % Plt Count 162 (130-450) 10^3/uL MPV 11.0 H (7.9-10.8) fL Neut # (Auto) 13.8 H (1.5-6.6) 10^3/uL Lymph # (Auto) 0.9 L (1.5-3.5) 10^3/uL [place] # (Auto) 1.2 H (0.0-1.0) 10^3/uL Eos # (Auto) 0.0 (0.0-0.7) 10^3/uL Baso # (Auto) 0.1 (0.0-0.1) 10^3/uL Absolute Nucleated RBC 0.00 x10^3/uL Nucleated RBC % 0.0 /100WBC Urine Color YELLOW Urine Clarity CLEAR (CLEAR) Urine pH 7.5 (5.0-7.5) PH Ur Specific [place] <=1.005 (1.002-1.030) Urine Protein NEGATIVE (NEGATIVE) mg/dL Urine Glucose (UA) NEGATIVE (NEGATIVE) mg/dL Urine Ketones NEGATIVE (NEGATIVE) mg/dL Urine Occult Blood NEGATIVE (NEGATIVE) Urine Nitrite NEGATIVE (NEGATIVE) Urine Bilirubin NEGATIVE (NEGATIVE) Urine Urobilinogen 0.2 (NORMAL) (NORMAL) E.U./dL Ur Leukocyte Esterase NEGATIVE (NEGATIVE) Urine RBC None Seen (0-5) /HPF Urine WBC 0-3 (0-5) /HPF Ur Squamous Epith Cells MANY Squamous H (<= Few) Urine Bacteria None Seen (None Seen) /HPF Urine Culture Comments NOT INDICATED Blood Type Blood Type Recheck A POSITIVE Antibody Screen Crossmatch IS Only 05/24/19 05/24/19 Range/Units 05:00 05:00 WBC 10.0 (4.8-10.8) x10^3/uL RBC 3.82 L (4.20-5.40) 10^6/uL Hgb 10.7 L (12.0-16.0) g/dL Hct 32.8 L (37.0-47.0) % MCV 85.9 (81.0-99.0) fL MCH 28.0 (27.0-31.0) pg MCHC 32.6 (32.0-36.0) g/dL RDW 15.4 H (12.0-15.0) % Plt Count 186 (130-450) 10^3/uL MPV 11.9 H (7.9-10.8) fL Neut # (Auto) 6.5 (1.5-6.6) 10^3/uL Lymph # (Auto) 1.8 (1.5-3.5) 10^3/uL [place] # (Auto) 1.3 H (0.0-1.0) 10^3/uL Eos # (Auto) 0.1 (0.0-0.7) 10^3/uL Baso # (Auto) 0.1 (0.0-0.1) 10^3/uL Absolute Nucleated RBC 0.00 x10^3/uL Nucleated RBC % 0.0 /100WBC Urine Color Urine Clarity (CLEAR) Urine pH (5.0-7.5) PH Ur Specific [place] (1.002-1.030) Urine Protein (NEGATIVE) mg/dL Urine Glucose (UA) (NEGATIVE) mg/dL Urine Ketones (NEGATIVE) mg/dL Urine Occult Blood (NEGATIVE) Urine Nitrite (NEGATIVE) Urine Bilirubin (NEGATIVE) Urine Urobilinogen (NORMAL) E.U./dL Ur Leukocyte Esterase (NEGATIVE) Urine RBC (0-5) /HPF Urine WBC (0-5) /HPF Ur Squamous Epith Cells (<= Few) Urine Bacteria (None Seen) /HPF Urine Culture Comments Blood Type A POSITIVE Blood Type Recheck Antibody Screen NEGATIVE Crossmatch IS Only See Detail - Current Medications Current Medications: Current Medications Generic Name Dose Route Start Last Admin Trade Name Freq PRN Reason Stop Dose Admin Acetaminophen 1,000 mg 05/24/19 10:00 05/24/19 10:50 Tylenol PO 1,000 mg Q8H HONEY Administration Lactated Ringer's 1,000 mls @ 125 mls/hr 05/24/19 05:00 05/24/19 11:00 Lr IV 125 mls/hr .Q8H HONEY Administration OXYTOCIN/DEXTROSE 5 % 30 unit in 500 mls @ 999 mls/hr 05/24/19 12:02 05/24/19 12:34 Pitocin/Dextrose 5% IV 125 milliunit/min PRN PRN 125 mls/hr POST- HEMORR PREVENTION Administration Protocol 999 MILLIUNIT/MIN Ibuprofen 600 mg 05/24/19 10:00 05/24/19 10:51 Motrin PO 05/25/19 09:59 600 mg Q6H HONEY Administration Sodium Chloride 10 ml 05/24/19 05:00 05/24/19 05:05 Normal Saline Flush 0.9% IVP 10 ml PRN PRN Administration NEEDED PER PROVIDER ORDERS - Physical Exam Comments/Other: The uterus is firm and Remains approximately 2 to 3 fingerbreadths above the umbilicus. Impression/Plan - Problem List Problem List: hemorrhage Plan: We will await the CBC results. Once those are back we will decide whether to put in a Bakri balloon or not.
[2019-05-24 14:56] LABS: BASOPHILS # (AUTO) 0.1 10^3/uL (0.0-0.1); BASOPHILS % (AUTO) 0.3 %; EOSINOPHILS # (AUTO) 0.1 10^3/uL (0.0-0.7); EOSINOPHILS % (AUTO) 0.7 %; HGB - HEMOGLOBIN 8.6 g/dL (12.0-16.0); LYMPHOCYTES # (AUTO) 0.7 10^3/uL (1.5-3.5); LYMPHOCYTES % (AUTO) 3.9 %; MEAN CORPUSCULAR HEMOGLOBIN 27.3 pg (27.0-31.0); MEAN CORPUSCULAR HGB CONC 31.7 g/dL (32.0-36.0); MEAN PLATELET VOLUME 11.2 fL (7.9-10.8); MONOCYTES # (AUTO) 1.3 10^3/uL (0.0-1.0); MONOCYTES % (AUTO) 7.5 %; NEUTROPHILS # (AUTO) 14.9 10^3/uL (1.5-6.6); NEUTROPHILS % (AUTO) 86.7 %; PLT - PLATELET COUNT 157 10^3/uL (130-450); RED BLOOD COUNT 3.15 10^6/uL (4.20-5.40); RED CELL DISTRIBUTION WIDTH 15.5 % (12.0-15.0); WHITE BLOOD COUNT 17.2 x10^3/uL (4.8-10.8)
[2019-05-24] MEDS: SIMETHICONE CHEW 80 MG TABLET PO PRN (16:59)
[2019-05-24] MEDS: FERROUS SULFATE 325 MG TABLET PO SCH (17:00)
[2019-05-24] MEDS ORDERED: NEOSTIGMINE 1 MG/1 ML 10 ML MDV IVP ONE (17:13)
[2019-05-24] MEDS ORDERED: MORPHINE 10 MG/ML VIAL IVP ONE (17:13)
[2019-05-24] MEDS ORDERED: fentaNYL 100 MCG/2 ML VIAL IVP ONE (17:13)
[2019-05-24] MEDS ORDERED: ePHEDrine 50 MG/ML VIAL IVP ONE (17:13)
[2019-05-24] MEDS ORDERED: HYDROCORTISONE 1% CREAM 28 GM TUBE PR PRN (17:26)
[2019-05-24] MEDS ORDERED: WITCH HAZEL/GLYCERIN 1 PAD TOP PRN (17:26)
[2019-05-24] MEDS ORDERED: FERRIC GLUCONATE 125 MG in SODIUM CHLORIDE 0.9% 100ML 100 ML IV ONE (17:26)
--- NOTE | 2019-05-24 17:42 | PROVIDER PROGRESS NOTE ---
Subjective - Subjective Subjective: S: feeling tired but otherwise well. Not dizzy. Ambulating without dizziness. No headache, no chest pain, no SOB. Bleeding is minimal. O: HR 95 BP 108/70 QBL 1800cc Fundus has been very firm and at the umbilicus for me Hct 32.8-->27.1 A/P: Healthy 34yo P2 9h s/p repeat at 38w for prior + twins. Had a normal EBL intraoperatively and had excellent tone. However has continued to have ongoing bleeding with a 1923cc QBL. Pt is tolerating her blood loss very well, only feeling tired, is ambulating well. Not tachycardic. Maintaining good UOP. Have reviewed that with her starting Hct, she is likely to be around a Hct of 15 after she equilibrates. Also, if she undergoes another major bleed, we would need to transfuse. Finally if she has a low Hct, people are still at risk for hemorrhage at home, especially at the 2w placental site remodel, and she won't have much "room" to lose more before it becomes life threatening. She would like to avoid transfusion if possible and would like to see what CBC shows tomorrow. She agrees to transfusion PRN increase in bleeding. Pt is a RN. As her blood loss is currently well-tolerated and ongoi ng losses are scant/normal lochia, I do feel that it is safe to continue observation. 1 more gram of TXA given now to keep bleeding minimal. Pt has good uterine tone, bladder is empty with mendez, uterus is without retained POC as it was explored during surgery. Objective - Vital Signs/Intake & Output Vital Signs: Vital Signs x48h Temp Pulse Pulse Resp BP BP Pulse Ox 05/24/19 17:00 101 H 115/59 L 100 05/24/19 15:58 97.3 F L 95 20 108/70 99 05/24/19 15:14 97.5 F L 95 20 106/65 99 05/24/19 14:41 101/68 05/24/19 14:33 97.7 F 90 20 84/62 L 99 05/24/19 14:04 98 97/63 100 05/24/19 13:30 104 H 115/62 05/24/19 13:20 108 H 114/71 05/24/19 13:01 93 18 97/79 05/24/19 12:45 100 18 106/48 L 05/24/19 12:30 88 102/59 L 100 05/24/19 12:15 99 98/68 100 05/24/19 12:08 98 103/54 L 100 05/24/19 11:45 104 H 106/59 L 99 05/24/19 11:30 101 H 83/43 L 100 05/24/19 11:15 106 H 16 103/58 L 100 05/24/19 10:57 103 H 100/57 L 100 05/24/19 10:45 97.5 F L 105 H 20 99/75 99 05/24/19 10:25 98.1 F 104 H 16 99/67 100 05/24/19 10:20 96.8 F L 107 H 18 107/56 L 100 05/24/19 10:15 98.1 F 116 H 16 107/56 L 100 05/24/19 10:10 98.1 F 112 H 16 99/74 100 05/24/19 10:05 98.1 F 110 H 14 106/68 100 05/24/19 10:01 97.7 F 106 H 18 104/63 99 Intake & Output: Intake & Output 05/21/19 05/22/19 05/23/19 05/24/19 23:59 23:59 23:59 23:59 Intake Total 5299.083 Output Total 2917 Balance 2382.083 - Lab Results Fish Bones: 05/24/19 14:50 Other Labs: Lab Results x24hrs 05/24/19 05/24/19 05/24/19 Range/Units 14:50 12:02 07:00 WBC 17.2 H 16.2 H (4.8-10.8) x10^3/uL RBC 3.15 L 3.17 L (4.20-5.40) 10^6/uL Hgb 8.6 L 8.6 L (12.0-16.0) g/dL Hct 27.1 L 27.6 L (37.0-47.0) % MCV 86.0 87.1 (81.0-99.0) fL MCH 27.3 27.1 (27.0-31.0) pg MCHC 31.7 L 31.2 L (32.0-36.0) g/dL RDW 15.5 H 15.7 H (12.0-15.0) % Plt Count 157 162 (130-450) 10^3/uL MPV 11.2 H 11.0 H (7.9-10.8) fL Neut # (Auto) 14.9 H 13.8 H (1.5-6.6) 10^3/uL Lymph # (Auto) 0.7 L 0.9 L (1.5-3.5) 10^3/uL [place] # (Auto) 1.3 H 1.2 H (0.0-1.0) 10^3/uL Eos # (Auto) 0.1 0.0 (0.0-0.7) 10^3/uL Baso # (Auto) 0.1 0.1 (0.0-0.1) 10^3/uL Absolute Nucleated RBC 0.00 0.00 x10^3/uL Nucleated RBC % 0.0 0.0 /100WBC Urine Color Urine Clarity (CLEAR) Urine pH (5.0-7.5) PH Ur Specific [place] (1.002-1.030) Urine Protein (NEGATIVE) mg/dL Urine Glucose (UA) (NEGATIVE) mg/dL Urine Ketones (NEGATIVE) mg/dL Urine Occult Blood (NEGATIVE) Urine Nitrite (NEGATIVE) Urine Bilirubin (NEGATIVE) Urine Urobilinogen (NORMAL) E.U./dL Ur Leukocyte Esterase (NEGATIVE) Urine RBC (0-5) /HPF Urine WBC (0-5) /HPF Ur Squamous Epith Cells (<= Few) Urine Bacteria (None Seen) /HPF Urine Culture Comments Blood Type Blood Type Recheck A POSITIVE Antibody Screen Crossmatch IS Only 05/24/19 05/24/19 05/24/19 Range/Units 05:55 05:00 05:00 WBC 10.0 (4.8-10.8) x10^3/uL RBC 3.82 L (4.20-5.40) 10^6/uL Hgb 10.7 L (12.0-16.0) g/dL Hct 32.8 L (37.0-47.0) % MCV 85.9 (81.0-99.0) fL MCH 28.0 (27.0-31.0) pg MCHC 32.6 (32.0-36.0) g/dL RDW 15.4 H (12.0-15.0) % Plt Count 186 (130-450) 10^3/uL MPV 11.9 H (7.9-10.8) fL Neut # (Auto) 6.5 (1.5-6.6) 10^3/uL Lymph # (Auto) 1.8 (1.5-3.5) 10^3/uL [place] # (Auto) 1.3 H (0.0-1.0) 10^3/uL Eos # (Auto) 0.1 (0.0-0.7) 10^3/uL Baso # (Auto) 0.1 (0.0-0.1) 10^3/uL Absolute Nucleated RBC 0.00 x10^3/uL Nucleated RBC % 0.0 /100WBC Urine Color YELLOW Urine Clarity CLEAR (CLEAR) Urine pH 7.5 (5.0-7.5) PH Ur Specific [place] <=1.005 (1.002-1.030) Urine Protein NEGATIVE (NEGATIVE) mg/dL Urine Glucose (UA) NEGATIVE (NEGATIVE) mg/dL Urine Ketones NEGATIVE (NEGATIVE) mg/dL Urine Occult Blood NEGATIVE (NEGATIVE) Urine Nitrite NEGATIVE (NEGATIVE) Urine Bilirubin NEGATIVE (NEGATIVE) Urine Urobilinogen 0.2 (NORMAL) (NORMAL) E.U./dL Ur Leukocyte Esterase NEGATIVE (NEGATIVE) Urine RBC None Seen (0-5) /HPF Urine WBC 0-3 (0-5) /HPF Ur Squamous Epith Cells MANY Squamous H (<= Few) Urine Bacteria None Seen (None Seen) /HPF Urine Culture Comments NOT INDICATED Blood Type A POSITIVE Blood Type Recheck Antibody Screen NEGATIVE Crossmatch IS Only See Detail
[2019-05-24] MEDS ORDERED: diphenhydrAMINE INJ 50 MG/ML VIAL IVP ONE (22:15)
[2019-05-24] MEDS ORDERED: SODIUM CHLORIDE 0.9% 1,000 ML IV ONE (22:23)
[2019-05-24] MEDS ORDERED: diphenhydrAMINE 25 MG CAPSULE PO ONE (23:35)
[2019-05-25] MEDS: IBUPROFEN 600 MG TABLET PO SCH ×3 (00:08→21:31)
[2019-05-25] MEDS: ACETAMINOPHEN 500 MG TABLET PO SCH ×3 (02:11→19:55)
[2019-05-25] MEDS: SIMETHICONE CHEW 80 MG TABLET PO PRN ×3 (02:20→16:02)
[2019-05-25] MEDS ORDERED: TRANEXAMIC ACID 1,000 MG/10 ML VIAL ONE (06:23)
[2019-05-25 06:50] LABS: BASOPHILS % (AUTO) 0.3 %; EOSINOPHILS % (AUTO) 0.1 %; HGB - HEMOGLOBIN 9.1 g/dL (12.0-16.0); LYMPHOCYTES % (AUTO) 9.4 %; MEAN CORPUSCULAR HGB CONC 33.3 g/dL (32.0-36.0); MEAN CORPUSCULAR VOLUME 86.9 fL (81.0-99.0); MONOCYTES % (AUTO) 12.3 %; NEUTROPHILS % (AUTO) 76.1 %; PLT - PLATELET COUNT 141 10^3/uL (130-450); RED BLOOD COUNT 3.14 10^6/uL (4.20-5.40); RED CELL DISTRIBUTION WIDTH 14.8 % (12.0-15.0); WHITE BLOOD COUNT 18.9 x10^3/uL (4.8-10.8)
[2019-05-25 06:57] LABS: ABNORMAL LYMPHS % (MANUAL) 0 %; BAND NEUTROPHILS % (MANUAL) 0 %
[2019-05-25 07:12] LABS: BASOPHILS # (MANUAL) 0.4 10^3/uL (0-0.1); BASOPHILS % (MANUAL) 2 %; LYMPHOCYTES # (MANUAL) 1.9 10^3/uL (1.5-3.5); LYMPHOCYTES % (MANUAL) 10 %; MONOCYTES # (MANUAL) 0.9 10^3/uL (0.0-1.0); PLATELET ESTIMATE, MANUAL NORMAL (130-450,000) (NORMAL); PLATELET MORPHOLOGY NORMAL APPEARANCE (NORMAL); RBC MORPHOLOGY (MULTIPLE) NORMAL APPEARANCE (NORMAL)
[2019-05-25 07:13] LABS: DIFFERENTIAL COMMENT MANUAL DIFFERENTIAL
[2019-05-25] MEDS ORDERED: FERRIC GLUCONATE 125 MG in SODIUM CHLORIDE 0.9% 100ML 100 ML IV ONE (07:15)
--- NOTE | 2019-05-25 08:07 | PROVIDER PROGRESS NOTE ---
Subjective - General Admit Date: 05/24/19 Procedure Date: 05/24/19 Post Op Days: 1 - Other Other Information/Narrative: The patient is feeling much better this morning. She was given 2 units of blood last night because the patient was started to become symptomatic with ambulation. She was starting to be hypotensive. After the 2 units of blood she did feel much better. Her Meza is now out and her IV has been discontinued. She does not have any further bleeding. She is actually doing quite well. And feels very good this morning. She denies any further bleeding episodes. She is breast-feeding without difficulty. Objective - Patient Data Vital Signs: Vital Signs x48h Temp Pulse Pulse Resp BP BP Pulse Ox 05/25/19 06:15 74 16 104/54 L 100 05/25/19 05:45 36.7 C 76 76 16 96/52 L 96/52 L 99 05/25/19 04:00 36.7 C 83 16 94/56 L 100 05/25/19 03:20 86 16 80/43 L 100 05/25/19 02:40 36.6 C 80 16 94/51 L 98 05/25/19 02:26 36.5 C 95 16 90/39 L 05/25/19 02:15 36.5 C 95 16 90/39 L 100 05/25/19 01:30 79 16 96/49 L 99 05/25/19 00:15 78 16 88/55 L 99 Weight: Weight 05/23/19 05/24/19 05/25/19 23:59 23:59 23:59 Weight (kg) 98.43 kg Intake & Output: Intake and Output Totals x24h 05/23/19 05/24/19 05/25/19 23:59 23:59 23:59 Intake Total 6534.083 500 Output Total 9779 2075 Balance 1033.796 -6777 - Lab Results Lab Results: 05/25/19 06:45 Other Lab Results: Lab Results x24hrs 05/25/19 05/24/19 05/24/19 Range/Units 06:45 14:50 12:02 WBC 18.9 H 17.2 H 16.2 H (4.8-10.8) x10^3/uL RBC 3.14 L 3.15 L 3.17 L (4.20-5.40) 10^6/uL Hgb 9.1 L 8.6 L 8.6 L (12.0-16.0) g/dL Hct 27.3 L 27.1 L 27.6 L (37.0-47.0) % MCV 86.9 86.0 87.1 (81.0-99.0) fL MCH 29.0 27.3 27.1 (27.0-31.0) pg MCHC 33.3 31.7 L 31.2 L (32.0-36.0) g/dL RDW 14.8 15.5 H 15.7 H (12.0-15.0) % Plt Count 141 157 162 (130-450) 10^3/uL MPV 11.0 H 11.2 H 11.0 H (7.9-10.8) fL Neut # (Auto) Not Reportable 14.9 H 13.8 H (1.5-6.6) 10^3/uL Lymph # (Auto) Not Reportable 0.7 L 0.9 L (1.5-3.5) 10^3/uL Harvey # (Auto) Not Reportable 1.3 H 1.2 H (0.0-1.0) 10^3/uL Eos # (Auto) Not Reportable 0.1 0.0 (0.0-0.7) 10^3/uL Baso # (Auto) Not Reportable 0.1 0.1 (0.0-0.1) 10^3/uL Absolute Nucleated RBC Not Reportable 0.00 0.00 x10^3/uL Total Counted 100 Band Neuts % (Manual) 0 (0 - 10) % Abnorm Lymph % (Manual) 0 % Nucleated RBC % Not Reportable 0.0 0.0 /100WBC Neutrophils # (Manual) 15.7 H (1.5-6.6) 10^3/uL Lymphocytes # (Manual) 1.9 (1.5-3.5) 10^3/uL Monocytes # (Manual) 0.9 (0.0-1.0) 10^3/uL Eosinophils # (Manual) 0.0 (0-0.7) 10^3/uL Basophils # (Manual) 0.4 H (0-0.1) 10^3/uL Differential Comment MANUAL DIFFERENTIAL WBC Morphology NORMAL APPEARANCE (NORMAL) Platelet Estimate NORMAL (130-450,000) (NORMAL) Platelet Morphology NORMAL APPEARANCE (NORMAL) RBC Morph Micro Appear NORMAL APPEARANCE (NORMAL) Blood Type Blood Type Recheck Antibody Screen Crossmatch IS Only 05/24/19 05/24/19 Range/Units 07:00 05:00 WBC (4.8-10.8) x10^3/uL RBC (4.20-5.40) 10^6/uL Hgb (12.0-16.0) g/dL Hct (37.0-47.0) % MCV (81.0-99.0) fL MCH (27.0-31.0) pg MCHC (32.0-36.0) g/dL RDW (12.0-15.0) % Plt Count (130-450) 10^3/uL MPV (7.9-10.8) fL Neut # (Auto) (1.5-6.6) 10^3/uL Lymph # (Auto) (1.5-3.5) 10^3/uL Harvey # (Auto) (0.0-1.0) 10^3/uL Eos # (Auto) (0.0-0.7) 10^3/uL Baso # (Auto) (0.0-0.1) 10^3/uL Absolute Nucleated RBC x10^3/uL Total Counted Band Neuts % (Manual) (0 - 10) % Abnorm Lymph % (Manual) % Nucleated RBC % /100WBC Neutrophils # (Manual) (1.5-6.6) 10^3/uL Lymphocytes # (Manual) (1.5-3.5) 10^3/uL Monocytes # (Manual) (0.0-1.0) 10^3/uL Eosinophils # (Manual) (0-0.7) 10^3/uL Basophils # (Manual) (0-0.1) 10^3/uL Differential Comment WBC Morphology (NORMAL) Platelet Estimate (NORMAL) Platelet Morphology (NORMAL) RBC Morph Micro Appear (NORMAL) Blood Type A POSITIVE Blood Type Recheck A POSITIVE Antibody Screen NEGATIVE Crossmatch IS Only See Detail - Current Medications Current Medications: Current Medications Generic Name Dose Route Start Last Admin Trade Name Freq PRN Reason Stop Dose Admin Acetaminophen 1,000 mg 05/24/19 10:00 05/25/19 02:11 Tylenol PO 1,000 mg Q8H HONEY Administration Ferrous Sulfate 325 mg 05/24/19 17:00 05/24/19 17:00 Feosol PO 325 mg BIDWM HONEY Administration OXYTOCIN/DEXTROSE 5 % 30 unit in 500 mls @ 999 mls/hr 05/24/19 12:02 05/24/19 16:35 Pitocin/Dextrose 5% IV Infused PRN PRN Titration POST- HEMORR PREVENTION Protocol 999 MILLIUNIT/MIN Ibuprofen 600 mg 05/24/19 10:00 05/25/19 06:19 Motrin PO 05/25/19 09:59 600 mg Q6H HONEY Administration Simethicone 80 mg 05/24/19 09:42 05/25/19 02:20 Mylicon PO 80 mg TID PRN Administration Gas Sodium Chloride 10 ml 05/24/19 05:00 05/24/19 17:01 Normal Saline Flush 0.9% IVP 10 ml PRN PRN Administration NEEDED PER PROVIDER ORDERS - Physical Exam Comments/Other: Heart: Heart has a regular rate and rhythm without murmur Lungs: Lungs are clear to auscultation bilaterally without wheezes, rales or rhonchi Abdomen: The abdomen is soft, pliable and nontender. She has normoactive bowel sounds in all 4 quadrants.The uterus is firm and nontender at the umbilicus. Incision: Incision is clean and dry. No oozing is noted this morning. There is evidence of old blood on the dressing that was removed today.This Steri-Strips are in place. Laboratory Results - last 24 hr 05/24/19 05/24/19 05/24/19 05:00 07:00 12:02 WBC 16.2 H RBC 3.17 L Hgb 8.6 L Hct 27.6 L MCV 87.1 MCH 27.1 MCHC 31.2 L RDW 15.7 H Plt Count 162 MPV 11.0 H Neut # (Auto) 13.8 H Lymph # (Auto) 0.9 L Harvey # (Auto) 1.2 H Eos # (Auto) 0.0 Baso # (Auto) 0.1 Absolute Nucleated RBC 0.00 Total Counted Band Neuts % (Manual) Abnorm Lymph % (Manual) Nucleated RBC % 0.0 Neutrophils # (Manual) Lymphocytes # (Manual) Monocytes # (Manual) Eosinophils # (Manual) Basophils # (Manual) Differential Comment WBC Morphology Platelet Estimate Platelet Morphology RBC Morph Micro Appear Blood Type A POSITIVE Blood Type Recheck A POSITIVE Antibody Screen NEGATIVE Crossmatch IS Only See Detail 05/24/19 05/25/19 14:50 06:45 WBC 17.2 H 18.9 H RBC 3.15 L 3.14 L Hgb 8.6 L 9.1 L Hct 27.1 L 27.3 L MCV 86.0 86.9 MCH 27.3 29.0 MCHC 31.7 L 33.3 RDW 15.5 H 14.8 Plt Count 157 141 MPV 11.2 H 11.0 H Neut # (Auto) 14.9 H Not Reportable Lymph # (Auto) 0.7 L Not Reportable Harvey # (Auto) 1.3 H Not Reportable Eos # (Auto) 0.1 Not Reportable Baso # (Auto) 0.1 Not Reportable Absolute Nucleated RBC 0.00 Not Reportable Total Counted 100 Band Neuts % (Manual) 0 Abnorm Lymph % (Manual) 0 Nucleated RBC % 0.0 Not Reportable Neutrophils # (Manual) 15.7 H Lymphocytes # (Manual) 1.9 Monocytes # (Manual) 0.9 Eosinophils # (Manual) 0.0 Basophils # (Manual) 0.4 H Differential Comment MANUAL DIFFERENTIAL WBC Morphology NORMAL APPEARANCE Platelet Estimate NORMAL (130-450,000) Platelet Morphology NORMAL APPEARANCE RBC Morph Micro Appear NORMAL APPEARANCE Blood Type Blood Type Recheck Antibody Screen Crossmatch IS Only Impression/Plan - Problem List Problem List: Postop day/ day #1-stable with improvement Uterine atony with hemorrhage-resolved Anemia secondary to hemorrhage Plan: We will continue with her present care plan at this time. She will co ntinue with ambulation today. We will reassess in the a.m.
[2019-05-25] MEDS: FERROUS SULFATE 325 MG TABLET PO SCH (10:53)
[2019-05-25] MEDS: oxyCODONE 5 MG TABLET PO PRN ×2 (10:54→15:56)
[2019-05-25] MEDS: DOCUSATE SODIUM 100 MG CAPSULE PO SCH (21:31)
[2019-05-26] MEDS: FERROUS SULFATE 325 MG TABLET PO SCH ×2 (00:16→08:47)
[2019-05-26] MEDS: IBUPROFEN 600 MG TABLET PO SCH ×3 (04:43→16:55)
[2019-05-26] MEDS: ACETAMINOPHEN 500 MG TABLET PO SCH ×2 (04:43→13:50)
[2019-05-26] MEDS: DOCUSATE SODIUM 100 MG CAPSULE PO SCH (08:47)
--- NOTE | 2019-05-26 13:10 | PROVIDER PROGRESS NOTE ---
Subjective - General Admit Date: 05/24/19 Procedure Date: 05/24/19 Post Op Days: 2 - Other Other Information/Narrative: The patient continues to do very well. She is ambulating well and voiding without difficulty. She is now passing flatus. She has not had a bowel movement but has had MiraLAX and does feel that she will be having a bowel movement today.She did pass a blood clot last night but before that and after that her lochia was just normal.She describes it as being very light.The patient is denying any symptoms of dizziness with ambulation or shortness of breath.She would like to be discharged if the babies can be discharged today. Objective - Patient Data Vital Signs: Vital Signs x48h Temp Pulse Resp BP Pulse Ox 05/26/19 08:54 36.7 C 98 18 118/64 100 Weight: Weight 05/24/19 05/25/19 05/26/19 23:59 23:59 23:59 Weight (kg) 98.43 kg Intake & Output: Intake and Output Totals x24h 05/24/19 05/25/19 05/26/19 23:59 23:59 23:59 Intake Total 6534.083 1220 Output Total 5499 2075 Balance 1035.083 -855 - Lab Results Lab Results: 05/25/19 06:45 - Current Medications Current Medications: Current Medications Generic Name Dose Route Start Last Admin Trade Name Freq PRN Reason Stop Dose Admin Acetaminophen 1,000 mg 05/24/19 10:00 05/26/19 04:43 Tylenol PO 1,000 mg Q8H HONEY Administration Docusate Sodium 100 mg 05/25/19 21:00 05/26/19 08:47 Colace 100mg Capsule PO 100 mg BID HONEY Administration Ferrous Sulfate 325 mg 05/24/19 17:00 05/26/19 08:47 Feosol PO 325 mg BIDWM HONEY Administration OXYTOCIN/DEXTROSE 5 % 30 unit in 500 mls @ 999 mls/hr 05/24/19 12:02 05/24/19 16:35 Pitocin/Dextrose 5% IV Infused PRN PRN Titration POST- HEMORR PREVENTION Protocol 999 MILLIUNIT/MIN Ibuprofen 600 mg 05/25/19 21:00 05/26/19 10:41 Motrin PO 600 mg Q6HR HONEY Administration Oxycodone HCl 5 - 10 mg 05/24/19 09:42 05/25/19 15:56 Roxicodone PO 5 mg Q4HR PRN Administration PAIN Polyethylene Glycol 17 gm 05/24/19 09:50 05/26/19 08:48 Miralax PO 17 gm DAILY PRN Administration Bowel Protocol Simethicone 80 mg 05/24/19 09:42 05/25/19 16:02 Mylicon PO 80 mg TID PRN Administration Gas Sodium Chloride 10 ml 05/24/19 05:00 05/24/19 17:01 Normal Saline Flush 0.9% IVP 10 ml PRN PRN Administration NEEDED PER PROVIDER ORDERS - Physical Exam Comments/Other: Lungs: Lungs clear to auscultation bilaterally without wheezes, rales or rhonchi Heart: The heart has a regular rate and rhythm without murmur, S3-S4 gallop rhythms Abdomen: The abdomen is soft, pliable and not tender.She has normoactive bowel sounds in all 4 quadrants. The uterus is firm and nontender approximately 1 to 2 fingerbreadths below the umbilicus. Incision: The incision is clean and dry without. Is well approximated. The Steri-Strips are in place. Impression/Plan - Problem List Problem List: Postop/ day #2-stable Twin delivery at 38 weeks and 3 days gestation Previous section Uterine atony with hemorrhage Anemia secondary to hemorrhage Plan:We will allow the patient to be discharged home. She was discharged home with both written and verbal instructions which included such things as: 1. No lifting, tampons douching or intercourse. 2. She is to report any temperatures greater than 100.4 or heavy vaginal bleeding 3. She is to continue her vitamins and increase her fluids 4. She is to use ibuprofen 600 mg p.o. 3 times daily PRN for pain. 5. She is not to drive a car for the next 2 weeks 6. As long as she does well she will be seen in the office in 1 week for her initial visit.. She will be seen in the office in 6 weeks for her full visit. 7. She will continue with ferrous sulfate 325 mg p.o. twice daily 8. She will use Colace twice daily with her iron 9. She will use MiraLAX as needed for constipation 10: She was given a prescription for Percocet 5/325 1 p.o. every 4 hours as needed pain #20 with no refills. She will use this to supplement her ibuprofen
[2019-05-26 15:46] VITALS: BP 114/62
--- NOTE | 2019-05-26 18:16 | Labor Flowsheet ---
Labor Flowsheet Datetime Report Generated by CPN: 05/26/2019 18:16 Datetime: 05/26/2019 13:12 VITAL SIGNS NBP Sys/Lois/Mean (mmHg): 114 : 62 : 72 Pulse: 91 Datetime: 05/26/2019 04:49 SpO2 (%): 99
--- NOTE | 2019-05-26 19:43 | DISCHARGE SUMMARY ---
Physician: Giovanni Alford DO DATE OF ADMISSION: 05/24/2019 DATE OF DISCHARGE: 05/26/2019 ADMISSION DIAGNOSES 1. Intrauterine at 38 weeks 2 days' gestation. 2. Diamniotic-dichorionic twin gestation. 3. Voluntary request for sterilization. DISCHARGE DIAGNOSES 1. Delivery at 38 weeks 2 days' gestation. 2. Diamniotic-dichorionic twin gestation. 3. Voluntary request for sterilization. 4. uterine atony. 5. hemorrhage. 6. Anemia secondary to acute blood loss secondary to hemorrhage. PROCEDURES 1. Repeat section with low transverse incision and bilateral salpingectomy. 2. Blood transfusion. LABORATORY DATA: Admit CBC revealed WBCs of 10, RBCs of 3.82, hemoglobin 10.7, hematocrit 32.8 with 186 platelets. Discharge CBC after 2 units of blood earlier on 05/24/2019 revealed WBCs of 18.9, RBC s of 3.14, hemoglobin 9.1, hematocrit 27.3 with 141 platelets. HOSPITAL COURSE: Patient was admitted to Labor and Delivery in the morning of 05/24/2019. She was t aken to surgery, given prophylactic antibiotics where the above said procedure was performed. One is referred to the operative note for full details. She did quite well and was taken back to her room in stable condition. However, soon after she had a gush of blood. The uterus was found to be slight ly atonic. They was creded and creded up quite quickly. She then had another one. She was given Me thergine 0.2 mg IM and again she did well. She then had another bleed and was given Hemabate 0.25 mg and again firmed up well. She then began still to ooze. She was given 1 gram of tranexamic acid IV , firmed up and did quite well. Her bleedings began to slow and stop. A check of her hemoglobin rev ealed it to be 8.6 at 1202, and it was repeated at 1450 and still found to be 8.6. She was actually feeling quite well. She was starting to ambulate. She then, however, as the evening progressed bega n to become slightly lightheaded with ambulation. The covering physician then transfused 2 units of blood. By the a.m. of 05/25/2019, her hemoglobin was now 9.1. She was completely asymptomatic. She was not having any further bleeding difficulties. Her lochia at that point was light. She was ambul ating well, tolerating diet well. The uterus was firm and nontender. Her Meza catheter had been re moved. She was the neonates quite well. It is of note that twin A weighed 7 pounds 6. 5 ounces and twin B weighed 7 pounds 6.7 ounces. They were twin girls. They were doing quite well. She continued to recover quite nicely throughout the day. She was on iron replacement therapy. By the afternoon of 05/26/2019, she continued to do quite well. Her lochia was now light at most. She was ambulating well, tolerating diet well. Lungs were clear. Heart had a regular rate and rhythm. The uterus was firm and nontender, 1-2 fingerbreadths below the umbilicus. The patient was asking to be discharged if the babies could be discharged. It was felt that the patient was stable and could be safely discharged home. The patient was discharged home with both written and verbal instructions , which included such things as: 1. She is to forego any lifting, tampons, douching or intercourse. 2. She is to report any temperatures greater than 100.4, drainage from the incision or heavy vaginal bleeding. 3. She is to leave the Steri-Strips on the incision for the next week. After that she may take them off. Prior to them coming off, she may take a shower. After they come off, she may take a tub bath. 4. She is not to drive a car for the next 2 weeks. 5. She will continue her vitamins and increase her fluids. 6. She will continue iron as ferrous sulfate 325 mg p.o. b.i.d. 7. She will use Colace 100 mg p.o. b.i.d. 8. She will use MiraLax on a p.r.n. basis. 9. She will continue ibuprofen 600 mg p.o. t.i.d. 10. She may use Tylenol as directed on a p.r.n. basis. 11. She was given prescription for Percocet 5/325, number 20, one p.o. every 4-6 hours p.r.n. pain, no refills. 12. As long as she does well, we will see her back in the office in one week for recheck. She will call sooner if she has problems. TD: 05/26/2019 13:34
== END 2019-05-26 17:55 | disposition home or self-care (01) | DRG 784 ==
LOC: FBP 04:33
PROVIDERS: ADMIT Obstetrics & Gynecology; ATTEND Obstetrics & Gynecology
PROC: 0UT70ZZ Resection of Bilateral Fallopian Tubes, Open Approach (ICD-10-PCS; 2019-05-24)
PROC: 30233N1 Transfusion of Nonautologous Red Blood Cells into Peripheral Vein, Percutaneous Approach (ICD-10-PCS; 2019-05-24)
PROC: 10D00Z1 Extraction of Products of Conception, Low, Open Approach (ICD-10-PCS; principal; 2019-05-24 07:30)
DX: O30.043 Twin pregnancy, dichorionic/diamniotic, third trimester (principal); O72.1 Other immediate postpartum hemorrhage; D62 Acute posthemorrhagic anemia; O99.43 Diseases of the circulatory system complicating the puerperium; O34.211 Maternal care for low transverse scar from previous cesarean delivery; N85.8 Other specified noninflammatory disorders of uterus; O69.81X2 Labor and delivery complicated by cord around neck, without compression, fetus 2; O90.81 Anemia of the puerperium; I95.9 Hypotension, unspecified; O99.89 Other specified diseases and conditions complicating pregnancy, childbirth and the puerperium; N99.4 Postprocedural pelvic peritoneal adhesions; Z3A.38 38 weeks gestation of pregnancy; Z37.2 Twins, both liveborn; Z30.2 Encounter for sterilization; Z79.82 Long term (current) use of aspirin; Z79.899 Other long term (current) drug therapy
CPT/HCPCS: 36415; 81001; 85025; 86850; 86900; 86901; 86920; A9270; J1200; J2916; J7120; P9016; 87086

== ENCOUNTER 2019-09-01 09:15 | Outpatient (CLI) | payer OTHER ==
[2019-09-01 12:01] LABS: BASOPHILS # (AUTO) 0.1 10^3/uL (0.0-0.1); BASOPHILS % (AUTO) 0.7 %; EOSINOPHILS # (AUTO) 0.2 10^3/uL (0.0-0.7); EOSINOPHILS % (AUTO) 1.9 %; HGB - HEMOGLOBIN 13.5 g/dL (12.0-16.0); LYMPHOCYTES # (AUTO) 1.5 10^3/uL (1.5-3.5); MEAN CORPUSCULAR HEMOGLOBIN 25.7 pg (27.0-31.0); MEAN CORPUSCULAR HGB CONC 31.2 g/dL (32.0-36.0); MEAN CORPUSCULAR VOLUME 82.3 fL (81.0-99.0); MEAN PLATELET VOLUME 10.8 fL (7.9-10.8); MONOCYTES # (AUTO) 0.6 10^3/uL (0.0-1.0); MONOCYTES % (AUTO) 7.3 %; NEUTROPHILS # (AUTO) 5.9 10^3/uL (1.5-6.6); NEUTROPHILS % (AUTO) 71.9 %; PLT - PLATELET COUNT 241 10^3/uL (130-450); RED BLOOD COUNT 5.26 10^6/uL (4.20-5.40); RED CELL DISTRIBUTION WIDTH 15.2 % (12.0-15.0); WHITE BLOOD COUNT 8.2 x10^3/uL (4.8-10.8)
[2019-09-01 12:25] LABS: % IRON SATURATION 25 % (20-50); ALBUMIN 4.2 g/dL (3.2-5.5); ALBUMIN/GLOBULIN RATIO 1.6 (1.0-2.2); ALKALINE PHOSPHATASE 65 IU/L (42-121); ALT ALANINE AMINOTRANSFERASE 43 IU/L (10-60); AST ASPARTATE AMINOTRANSFERASE 28 IU/L (10-42); BILIRUBIN,TOTAL 0.9 mg/dL (0.2-1.0); BUN - BLOOD UREA NITROGEN 9 mg/dL (6-20); CALCIUM 9.1 mg/dL (8.5-10.3); CARBON DIOXIDE - CO2 26 mmol/L (21-32); CHLORIDE 105 mmol/L (101-111); CHOL/HDL RATIO 2.9 (<4.4); CHOLESTEROL 171 mg/dL; CREATININE 0.7 mg/dL (0.4-1.0); GFR - MDRD 118 (>89); GLUCOSE 86 mg/dL (70-100); HDL CHOLESTEROL 58 mg/dL; IRON 79 ug/dL (28-170); LDL CHOLESTEROL,CALCULATED 102 mg/dL; LDL/HDL RATIO 1.8 (<4.4); SODIUM 138 mmol/L (135-145); TOTAL IRON BINDING CAPACITY 318 ug/dL (250-450); TOTAL PROTEIN 6.9 g/dL (6.7-8.2); TRANSFERRIN 227 mg/dL (192-382); VLDL CHOLESTEROL 11 mg/dL
== END 2019-09-01 23:59 | disposition home or self-care (01) ==
LOC: LAB.WCP 09:15
PROVIDERS: ATTEND Physician Assistant
DX: Z00.00 Encounter for general adult medical examination without abnormal findings (principal); D50.9 Iron deficiency anemia, unspecified
CPT/HCPCS: 36415; 80053; 80061; 83540; 83721; 84443; 84466; 85025

== ENCOUNTER 2020-01-07 09:11 | Outpatient (CLI) | payer OTHER ==
[2020-01-07 11:47] LABS: BASOPHILS # (AUTO) 0.1 10^3/uL (0.0-0.1); BASOPHILS % (AUTO) 0.8 %; EOSINOPHILS # (AUTO) 0.3 10^3/uL (0.0-0.7); EOSINOPHILS % (AUTO) 3.7 %; HGB - HEMOGLOBIN 12.4 g/dL (12.0-16.0); LYMPHOCYTES # (AUTO) 2.1 10^3/uL (1.5-3.5); LYMPHOCYTES % (AUTO) 28.6 %; MEAN CORPUSCULAR HEMOGLOBIN 27.1 pg (27.0-31.0); MEAN CORPUSCULAR HGB CONC 31.1 g/dL (32.0-36.0); MEAN CORPUSCULAR VOLUME 87.1 fL (81.0-99.0); MEAN PLATELET VOLUME 11.6 fL (7.9-10.8); MONOCYTES # (AUTO) 0.6 10^3/uL (0.0-1.0); MONOCYTES % (AUTO) 7.9 %; NEUTROPHILS # (AUTO) 4.3 10^3/uL (1.5-6.6); NEUTROPHILS % (AUTO) 58.7 %; PLT - PLATELET COUNT 236 10^3/uL (130-450); RED BLOOD COUNT 4.58 10^6/uL (4.20-5.40); RED CELL DISTRIBUTION WIDTH 13.6 % (12.0-15.0); WHITE BLOOD COUNT 7.3 x10^3/uL (4.8-10.8)
== END 2020-01-07 23:59 | disposition home or self-care (01) ==
LOC: LAB.WCP 09:11
PROVIDERS: ATTEND Physician Assistant
DX: Z00.00 Encounter for general adult medical examination without abnormal findings (principal); D50.9 Iron deficiency anemia, unspecified
CPT/HCPCS: 36415; 84443; 85025